=== PATIENT | female | born 1995 | race Caucasian/White ===

== ENCOUNTER 2021-11-08 12:52 | Emergency (ER) | payer OTHER ==
[~2021-11-08] VITALS: Ht 167.6 cm; Wt 49.9 kg
[2021-11-08] MEDS ORDERED: MIRTAZAPINE PO (13:33)
[2021-11-08] MEDS ORDERED: CLON1 PO (16:18)
== END 2021-11-08 16:33 | disposition home or self-care (01) ==
LOC: ER 12:52
DX: F41.0 Panic disorder [episodic paroxysmal anxiety] (principal)
CPT/HCPCS: 99282

== ENCOUNTER → 2021-11-28 | Outpatient (CLI) | payer OTHER ==
[~2021-11-28] MED LIST: CLON1 PO; MIRTAZAPINE PO
== END | disposition home or self-care (01) ==
LOC: LAB SHORT 16:54 → LAB 16:54
PROVIDERS: Advanced Practice Midwife
DX: Z01.419 Encounter for gynecological examination (general) (routine) without abnormal findings (principal)
CPT/HCPCS: G0123